=== PATIENT | male | born 2000 | race Caucasian/White ===

== ENCOUNTER 2020-04-11 22:07 | Emergency (ER) | payer OTHER ==
[~2020-04-11] VITALS: Ht 182.9 cm; Wt 93.2 kg
[2020-04-11 23:45] VITALS: BP 132/57
== END 2020-04-12 | disposition home or self-care (01) ==
LOC: M ED 22:07
DX: T43.615A Adverse effect of caffeine, initial encounter (principal); G25.0 Essential tremor; R10.9 Unspecified abdominal pain

== ENCOUNTER 2021-03-09 01:59 | Emergency (ER) | payer OTHER ==
[~2021-03-09] VITALS: Ht 182.9 cm; Wt 97.6 kg
[2021-03-09 01:59] VITALS: BP 141/80
--- NOTE | 2021-03-09 19:14 | ECGEPIP ---
[facility] - ED Test Date: 2021-03-09 Pat Name: VERONICA HERNANDEZ Department: Room: - Gender: Male Poultryman: [facility] : 2000 Requested By: LEONCIO Rios Order Number: [id number] Reading MD: Guerda Crowe Measurements Intervals [place] Rate: 88 P: 61 GA: 166 QRS: 39 QRSD: 84 T: 36 QT: 328 QTc: 396 Interpretive Statements Sinus rhythm with marked sinus arrhythmia Nonspecific ST abnormality No prior ECG for comparison Electronically Signed on 03-09-2021 19:14:28 EDT by Guerda Crowe
== END 2021-03-09 03:19 | disposition left against medical advice (07) ==
LOC: M ED 01:59
DX: Z53.29 Procedure and treatment not carried out because of patient's decision for other reasons (principal)

== ENCOUNTER 2021-05-28 18:12 | Emergency (ER) | payer OTHER ==
[~2021-05-28] VITALS: Ht 182.9 cm; Wt 93.2 kg
[2021-05-28 18:14] VITALS: BP 126/60
--- OUTSIDE RECORDS SUMMARY | 2021-05-28 18:24 | CCD ---
Author Author [facility] Organization [facility] Address Unknown Phone Unavailable Care Team Providers Care Sound Installation Worker Name Role Phone ARMIDA JAIN Unavailable Unavailable Re-disclosure Warning The records that you are about to access may contain information from federally-assisted alcohol or drug abuse programs. If such information is present, then the following federally mandated warning applies: This information has been disclosed to you from records protected by federal confidentiality rules (42 CFR part 2). The federal rules prohibit you from making any further disclosure of this information unless further disclosure is expressly permitted by the written consent of the person to whom it pertains or as otherwise permitted by 42 CFR part 2. A general authorization for the release of medical or other information is NOT sufficient for this purpose. The Federal rules restrict any use of the information to criminally investigate or prosecute any alcohol or drug abuse patient.The records that you are about to access may contain highly sensitive health information, the redisclosure of which is protected by Article 27-F of the [facility] Public Health law. If you continue you may have access to information: Regarding HIV / AIDS; Provided by facilities licensed or operated by the [facility] Office of Mental Health; or Provided by the [facility] Office for People With Developmental Disabilities. If such information is present, then the following [facility] mandated warning applies: This information has been disclosed to you from confidential records which are protected by state law. State law prohibits you from making any further disclosure of this information without the specific written consent of the person to whom it pertains, or as otherwise permitted by law. Any unauthorized further disclosure in violation of state law may result in a fine or mcc sentence or both. A general authorization for the release of medical or other information is NOT sufficient authorization for further disc losure. Encounters Encounter Providers Location Date Indications Data Source(s ) Outpatient Attender: ARMIDA SUNSHINECHLOEonsultant: ARMIDA JAIN 05/23/2021 11:30:00 AM EDT [facility] Immunizations Vaccine Date Status Description Data Source(s) COVID-19 VACCINE Pfizer 02/04/2021 12:00:00 AM EDT completed [facility] Vaccine Series Complete: NOThis Data was Submitted to [facility] Via [employer]. INFLUENZA VIRUS VACCINE QUADRIVALENT 2019- (6 MOS AN D UP) 08/11/2020 12:00:00 AM EST completed [facility] Medications No Information Insurance Providers Payer name Policy type / Coverage type Policy ID Covered green party ID Covered green party's relationship to soares Policy Soares Plan Information [facility] HUMANA - O/P [id number] 18 [id number] [facility] ACTIVE DUTY [id number] SP [id number] [facility] [id number] S [id number] Problems, Conditions, and Diagnoses No Information Surgeries/Procedures No Information Results ID Date Data Source [id number] 05/02/2021 12:00:00 AM EDT [facility] Name Value Range Interpretation Code Description Data Betty rce(s) Supporting Document(s) SARS-COV 2 PCR NEGATIVE [facility] This lab was ordered by [facility] and reported by [employer]. ID Date Data Source [id number] 05/02/2021 12:00:00 AM EDT [facility] Name Value Range Interpretation Code Description Data Betty rce(s) Supporting Document(s) SARS-CoV-2 (COVID-19) RNA [Presence] in Respiratory specimen by ANKIT with probe detection Not detected [facility] This lab was ordered by [employer] and r eported by [employer] ID Date Data Source [id number] 04/25/2021 12:00:00 AM EDT [facility] Name Value Range Interpretation Code Description Data Betty rce(s) Supporting Document(s) SARS-CoV-2 (COVID-19) RNA [Presence] in Respiratory specimen by ANKIT with probe detection Not detected [facility] This lab was ordered by [employer] and r eported by [employer]. ID Date Data Source [id number] 04/25/2021 12:00:00 AM EDT [facility] Name Value Range Interpretation Code Description Data Betty rce(s) Supporting Document(s) SARS-COV 2 PCR NEGATIVE [facility] This lab was ordered by [facility] and reported by [employer]. ID Date Data Source [id number] 04/23/2021 12:00:00 AM EDT [facility] Name Value Range Interpretation Code Description Data Betty rce(s) Supporting Document(s) SARS-CoV-2 (COVID-19) RNA [Presence] in Respiratory specimen by ANKIT with probe detection Not detected [facility] This lab was ordered by [employer] and r eported by [employer]. ID Date Data Source [id number] 04/23/2021 12:00:00 AM EDT [facility] Name Value Range Interpretation Code Description Data Betty rce(s) Supporting Document(s) SARS-COV 2 PCR NEGATIVE [facility] This lab was ordered by [facility] and reported by [employer]. ID Date Data Source [id number] 03/27/2021 12:00:00 AM EDT [facility] Name Value Range Interpretation Code Description Data Betty rce(s) Supporting Document(s) SARS-CoV-2 (COVID-19) RNA [Presence] in Respiratory specimen by ANKIT with probe detection Not detected [facility] This lab was ordered by [employer] and r eported by [employer]. ID Date Data Source [id number] 03/27/2021 12:00:00 AM EDT [facility] Name Value Range Interpretation Code Description Data Betty rce(s) Supporting Document(s) SARS-COV 2 PCR NEGATIVE [facility] This lab was ordered by [facility] and reported by [employer]. ID Date Data Source [id number] 03/22/2021 12:00:00 AM EDT [facility] Name Value Range Interpretation Code Description Data Betty rce(s) Supporting Document(s) SARS-CoV-2 (COVID-19) RNA [Presence] in Respiratory specimen by ANKIT with probe detection Not detected [facility] This lab was ordered by [employer] and r eported by [employer]. ID Date Data Source [id number] 03/22/2021 12:00:00 AM EDT [facility] Name Value Range Interpretation Code Description Data Betty rce(s) Supporting Document(s) SARS-COV 2 PCR NEGATIVE [facility] This lab was ordered by [facility] and reported by [employer]. ID Date Data Source [id number] 03/13/2021 01:00:00 AM EDT [facility] Name Value Range Interpretation Code Description Data Betty rce(s) Supporting Document(s) SARS-COV 2 PCR NEGATIVE [facility] This lab was ordered by [facility] and reported by [employer]. ID Date Data Source [id number] 03/13/2021 12:00:00 AM EDT [facility] Name Value Range Interpretation Code Description Data Betty rce(s) Supporting Document(s) SARS-CoV-2 (COVID-19) RNA [Presence] in Respiratory specimen by ANKIT with probe detection Not detected [facility] This lab was ordered by [employer] and r eported by [employer]. ID Date Data Source [id number] 03/07/2021 08:43:00 AM EDT [facility] Name Value Range Interpretation Code Description Data Betty rce(s) Supporting Document(s) SARS-COV 2 PCR NEGATIVE [facility] This lab was ordered by [facility] and reported by [employer]. ID Date Data Source [id number] 03/07/2021 12:00:00 AM EDT [facility] Name Value Range Interpretation Code Description Data Betty rce(s) Supporting Document(s) SARS-CoV-2 (COVID-19) RNA [Presence] in Respiratory specimen by ANKIT with probe detection Not detected [facility] This lab was ordered by [employer] and r eported by [employer]. ID Date Data Source [id number] 03/01/2021 12:00:00 AM EDT [facility] Name Value Range Interpretation Code Description Data Betty rce(s) Supporting Document(s) SARS-COV 2 PCR NEGATIVE [facility] This lab was ordered by [facility] and reported by [employer]. ID Date Data Source [id number] 03/01/2021 12:00:00 AM EDT [facility] Name Value Range Interpretation Code Description Data Betty rce(s) Supporting Document(s) SARS-CoV-2 (COVID-19) RNA [Presence] in Respiratory specimen by ANKIT with probe detection Not detected [facility] This lab was ordered by [employer] and r eported by [facility]. ID Date Data Source [id number] 02/23/2021 12:00:00 AM EDT [facility] Name Value Range Interpretation Code Description Data Betty rce(s) Supporting Document(s) SARS coronavirus 2 RNA Not Detected [facility] This lab was ordered by [employer] and rep orted by [facility]. Procedure Social History No Information
[2021-05-28] MEDS ORDERED: DERMABOND TOPICAL SKIN ADHESIVE TOP ONE (20:15)
[2021-05-28] MEDS ORDERED: ONDANSETRON 4 MG ORAL DISINTEGRATING TAB PO ONE (20:15)
--- OUTSIDE RECORDS SUMMARY | 2021-05-28 20:30 | CCD ---
Author Author [facility] Organization [facility] Address Unknown Phone Unavailable Care Team Providers Care Child Welfare Consultant Name Role Phone ARMIDA JAIN Unavailable Unavailable [...] is protected by Article 27-F of the [facility] Public Health law. If you continue you may have access to information: Regarding HIV / AIDS; Provided by facilities licensed or operated by the [facility] Office of Mental Health; or Provided by the [facility] Office for People With Developmental Disabilities. If such information is present, then the following [facility] mandated warning applies: This information has been [...] law may result in a fine or nursing home sentence or both. A general authorization for the release of medical or other information is NOT sufficient authorization for further disc losure. Encounters Encounter Providers Location Date Indications Data Source(s ) Outpatient Attender: ARMIDA SUNSHINECHLOEonsultant: ARMIDA JAIN 05/23/2021 11:30:00 AM EDT [facility] Immunizations Vaccine Date Status Description Data Source(s) COVID-19 VACCINE Pfizer 02/04/2021 12:00:00 AM EDT completed [facility] Vaccine Series Complete: NOThis Data was Submitted to [facility] Via [employer]. INFLUENZA VIRUS VACCINE QUADRIVALENT 2019- (6 MOS AN D UP) 08/11/2020 12:00:00 AM EST completed [facility] Medications No Information Insurance Providers Payer name Policy type / Coverage type Policy ID Covered republican ID Covered republican's relationship to soares Policy Soares Plan Information [facility] HUMANA - O/P [id number] 18 [id number] [facility] ACTIVE DUTY [id number] SP [id number] [facility] [id number] S [id number] Problems, Conditions, and Diagnoses No Information Surgeries/Procedures No Information Results ID Date Data Source [id number] 05/02/2021 12:00:00 AM EDT [facility] Name Value Range Interpretation Code Description Data Betty rce(s) Supporting Document(s) SARS-COV 2 PCR NEGATIVE [facility] This lab was ordered by [facility] [employer] [facility] and reported by [employer]. ID Date Data Source [id number] 05/02/2021 12:00:00 AM EDT [facility] Name Value Range Interpretation Code Description Data Betty rce(s) Supporting Document(s) SARS-CoV-2 (COVID-19) RNA [Presence] in Respiratory specimen by ANKIT with probe detection Not detected [facility] This lab was ordered by [employer] and r eported by [employer]. ID Date Data Source [id number] 04/25/2021 12:00:00 AM EDT [facility] Name Value Range Interpretation Code Description Data Betty rce(s) Supporting Document(s) SARS-CoV-2 (COVID-19) RNA [Presence] in Respiratory specimen by ANKIT with probe detection Not detected [facility] This lab was ordered by [employer] and r eported by [employer]. ID Date Data Source [id number] 04/25/2021 12:00:00 AM EDT [facility] Name Value Range Interpretation Code Description Data Betty rce(s) Supporting Document(s) SARS-COV 2 PCR NEGATIVE [facility] This lab was ordered by [facility] and reported by [employer]. ID Date Data Source [id number] 04/23/2021 12:00:00 AM EDT [facility] Name Value Range Interpretation Code Description Data Betty rce(s) Supporting Document(s) SARS-CoV-2 (COVID-19) RNA [Presence] in Respiratory specimen by ANKIT with probe detection Not detected [facility] This lab was ordered by [employer] and r eported by [employer]. ID Date Data Source [id number] 04/23/2021 12:00:00 AM EDT [facility] Name Value Range Interpretation Code Description Data Betty rce(s) Supporting Document(s) SARS-COV 2 PCR NEGATIVE [facility] This lab was ordered by [facility] and reported by [employer]. ID Date Data Source [id number] 03/27/2021 12:00:00 AM EDT [facility] Name Value Range Interpretation Code Description Data Betty rce(s) Supporting Document(s) SARS-CoV-2 (COVID-19) RNA [Presence] in Respiratory specimen by ANKIT with probe detection Not detected [facility] This lab was ordered by [employer] and r eported by [employer]. ID Date Data Source [id number] 03/27/2021 12:00:00 AM EDT [facility] Name Value Range Interpretation Code Description Data Betty rce(s) Supporting Document(s) SARS-COV 2 PCR NEGATIVE [facility] This lab was ordered by [facility] and reported by [employer]. ID Date Data Source [id number] 03/22/2021 12:00:00 AM EDT [facility] Name Value Range Interpretation Code Description Data Betty rce(s) Supporting Document(s) SARS-CoV-2 (COVID-19) RNA [Presence] in Respiratory specimen by ANKIT with probe detection Not detected [facility] This lab was ordered by [employer] and r eported by [employer]. ID Date Data Source [id number] 03/22/2021 12:00:00 AM EDT [facility] Name Value Range Interpretation Code Description Data Betty rce(s) Supporting Document(s) SARS-COV 2 PCR NEGATIVE [facility] This lab was ordered by [facility] and reported by [employer]. ID Date Data Source [id number] 03/13/2021 01:00:00 AM EDT [facility] Name Value Range Interpretation Code Description Data Betty rce(s) Supporting Document(s) SARS-COV 2 PCR NEGATIVE [facility] This lab was ordered by [facility] and reported by [employer]. ID Date Data Source [id number] 03/13/2021 12:00:00 AM EDT [facility] Name Value Range Interpretation Code Description Data Betty rce(s) Supporting Document(s) SARS-CoV-2 (COVID-19) RNA [Presence] in Respiratory specimen by ANKIT with probe detection Not detected [facility] This lab was ordered by [employer] and r eported by [employer]. ID Date Data Source [id number] 03/07/2021 08:43:00 AM EDT [facility] Name Value Range Interpretation Code Description Data Betty rce(s) Supporting Document(s) SARS-COV 2 PCR NEGATIVE [facility] This lab was ordered by [facility] and reported by [employer]. ID Date Data Source [id number] 03/07/2021 12:00:00 AM EDT [facility] Name Value Range Interpretation Code Description Data Betty rce(s) Supporting Document(s) SARS-CoV-2 (COVID-19) RNA [Presence] in Respiratory specimen by ANKIT with probe detection Not detected [facility] This lab was ordered by [employer] and r eported by [employer]. ID Date Data Source [id number] 03/01/2021 12:00:00 AM EDT [facility] Name Value Range Interpretation Code Description Data Betty rce(s) Supporting Document(s) SARS-COV 2 PCR NEGATIVE [facility] This lab was ordered by [facility] and reported by [employer]. ID Date Data Source [id number] 03/01/2021 12:00:00 AM EDT [facility] Name Value Range Interpretation Code Description Data Betty rce(s) Supporting Document(s) SARS-CoV-2 (COVID-19) RNA [Presence] in Respiratory specimen by ANKIT with probe detection Not detected [facility] This lab was ordered by [email or web address] and r eported by [facility]. ID Date Data Source [id number] 02/23/2021 12:00:00 AM EDT [facility] Name Value Range Interpretation Code Description Data Betty rce(s) Supporting Document(s) SARS coronavirus 2 RNA Not Detected [facility] This lab was ordered by [employer] and rep orted by [facility]. Procedure Social History No Information
== END 2021-05-28 21:11 | disposition home or self-care (01) ==
LOC: M ED 18:12
DX: S61.412A Laceration without foreign body of left hand, initial encounter (principal); W26.0XXA Contact with knife, initial encounter; Y92.89 Other specified places as the place of occurrence of the external cause; Y99.0 Civilian activity done for income or pay
CPT/HCPCS: 12001; 99282; Q0162

== ENCOUNTER 2021-09-20 17:16 | Emergency (ER) | payer OTHER ==
[~2021-09-20] VITALS: Ht 182.9 cm; Wt 100.0 kg
[2021-09-20 19:19] LABS: BASO # 0.1 10^3/uL (0.0-0.2); BASO % 0.7 % (0.0-1.0); EOS # 0.4 10^3/uL (0.0-0.5); EOS % 4.7 % (0.0-3.0); HEMATOCRIT 47.2 % (42.0-52.0); HEMOGLOBIN 15.9 g/dl (13.5-17.5); LYMPH % 25.4 % (24.0-44.0); MEAN CORPUSCULAR HGB CONC 33.7 g/dl (32.0-36.5); MONO % 13.4 % (2.0-8.0); NEUTROPHILS # 4.3 10^3/uL (1.5-8.5); NEUTROPHILS % 55.7 % (36.0-66.0); PLATELET COUNT, AUTOMATED 348 10^3/uL (150-450); RED BLOOD COUNT 5.13 10^6/uL (4.30-6.10); WHITE BLOOD COUNT 7.7 10^3/uL (4.0-10.0)
[2021-09-20 19:39] LABS: ERYTHROCYTE SEDIMENTATION RATE 2 mm/hr (0-15)
[2021-09-20 19:58] LABS: BLOOD UREA NITROGEN 20 MG/DL (7-18); CALCIUM LEVEL 9.5 MG/DL (8.5-10.1); CARBON DIOXIDE LEVEL 29 MEQ/L (21-32); CHLORIDE LEVEL 104 MEQ/L (98-107); CREATININE FOR GFR 1.04 MG/DL (0.70-1.30); GLOMERULAR FILTRATION RATE > 60.0 (>60); GLUCOSE, FASTING 92 MG/DL (70-100); POTASSIUM SERUM 4.5 MEQ/L (3.5-5.1); SODIUM LEVEL 137 MEQ/L (136-145)
[2021-09-20 20:49] VITALS: BP 137/79
== END 2021-09-20 20:51 | disposition home or self-care (01) ==
LOC: M ED 17:16
DX: R07.89 Other chest pain (principal); R06.02 Shortness of breath

== ENCOUNTER 2022-01-26 13:49 | Emergency (ER) | payer OTHER ==
[~2022-01-26] VITALS: Ht 182.9 cm; Wt 95.5 kg
[2022-01-26 15:47] LABS: RSV AMPLIFICATION NEGATIVE (NEGATIVE)
[2022-01-26 16:38] VITALS: BP 140/94
== END 2022-01-26 16:41 | disposition home or self-care (01) ==
LOC: M ED 13:49
DX: R05.9 Cough, unspecified (principal); R06.7 Sneezing

== ENCOUNTER 2023-04-01 15:44 | Emergency (ER) | payer OTHER ==
[~2023-04-01] VITALS: Ht 182.9 cm; Wt 100.5 kg
[2023-04-01 15:45] VITALS: BP 162/86; TEMP 98.2; O2SAT 97
[2023-04-01] MEDS ORDERED: ACETAMINOPHEN 325 MG TAB PO ONE (19:30)
[2023-04-01 19:56] LABS: GC DNA AMPLIFICATION NEGATIVE (NEGATIVE)
[2023-04-01] MEDS ORDERED: DOXYCYCLINE HYCLATE 100MG TABLET PO ONE (20:25)
[2023-04-01] MEDS ORDERED: DOXY-443 PO (20:26)
== END 2023-04-01 20:38 | disposition home or self-care (01) ==
LOC: M ED 15:44
DX: N34.1 Nonspecific urethritis (principal); A74.9 Chlamydial infection, unspecified; Z79.899 Other long term (current) drug therapy

== ENCOUNTER 2023-04-29 21:37 | Emergency (ER) | payer OTHER ==
[~2023-04-29] VITALS: Ht 182.9 cm; Wt 100.0 kg
[~2023-04-29 21:37] MED LIST: DOXY-443 PO
[2023-04-29 21:45] VITALS: BP 165/95; TEMP 97.9; O2SAT 94
== END 2023-04-29 23:13 | disposition left against medical advice (07) ==
LOC: M ED 21:37
DX: Z53.21 Procedure and treatment not carried out due to patient leaving prior to being seen by health care provider (principal)

== ENCOUNTER 2023-09-08 21:21 | Emergency (ER) | payer OTHER ==
[~2023-09-08] VITALS: Ht 182.9 cm; Wt 101.4 kg
[2023-09-08 22:42] LABS: BASO % 0.3 % (0.0-1.0); EOS # 0.1 10^3/uL (0.0-0.5); EOS % 0.6 % (0.0-3.0); HEMATOCRIT 50.6 % (42.0-52.0); HEMOGLOBIN 17.7 g/dl (13.5-17.5); LYMPH # 1.9 10^3/uL (1.5-5.0); MEAN CORPUSCULAR HEMOGLOBIN 32.5 pg (27.0-33.0); MEAN CORPUSCULAR VOLUME 92.8 fl (80.0-96.0); MONO % 9.5 % (2.0-8.0); NEUTROPHILS # 7.4 10^3/uL (1.5-8.5); NEUTROPHILS % 71.1 % (36.0-66.0); PLATELET COUNT, AUTOMATED 389 10^3/uL (150-450); RED BLOOD COUNT 5.45 10^6/uL (4.30-6.10); WHITE BLOOD COUNT 10.4 10^3/uL (4.0-10.0)
[2023-09-08 22:58] LABS: INR 0.97; PROTHROMBIN TIME 12.6 SECONDS (12.5-14.5)
[2023-09-08 22:59] LABS: PARTIAL THROMBOPLASTIN TIME 33.2 SECONDS (24.8-34.2)
[2023-09-08 23:08] LABS: ETHYL ALCOHOL (ETHANOL) 0.252 % (0.000-0.010)
[2023-09-08 23:10] LABS: ALBUMIN 4.4 G/DL (3.2-5.2); ALKALINE PHOSPHATASE 62 U/L (46-116); ALT/SGPT 55 U/L (7.0-40); AST/SGOT 39 U/L (<34); BILIRUBIN,TOTAL 0.5 MG/DL (0.3-1.2); BLOOD UREA NITROGEN 7 MG/DL (9-23); CALCIUM LEVEL 9.5 MG/DL (8.5-10.1); CARBON DIOXIDE LEVEL 27 MMOL/L (20-31); CHLORIDE LEVEL 104 MMOL/L (98-107); CREATININE FOR GFR 0.88 MG/DL (0.70-1.30); GLOMERULAR FILTRATION RATE > 60.0 (>60); GLUCOSE, FASTING 95 MG/DL (60-100); MAGNESIUM LEVEL 2.2 MG/DL (1.8-2.4); POTASSIUM SERUM 4.2 MMOL/L (3.5-5.1); SODIUM LEVEL 140 MMOL/L (136-145); TOTAL PROTEIN 7.9 G/DL (5.7-8.2)
[2023-09-08 23:29] VITALS: BP 148/80; TEMP 98.8; O2SAT 98
== END 2023-09-08 23:31 | disposition short-term general hospital (02) ==
LOC: M ED 21:21
DX: S06.0X1A Concussion with loss of consciousness of 30 minutes or less, initial encounter (principal); S06.369A Traumatic hemorrhage of cerebrum, unspecified, with loss of consciousness of unspecified duration, initial encounter; V00.311A Fall from snowboard, initial encounter; F10.10 Alcohol abuse, uncomplicated; Y92.89 Other specified places as the place of occurrence of the external cause; Y93.23 Activity, snow (alpine) (downhill) skiing, snowboarding, sledding, tobogganing and snow tubing; Y99.9 Unspecified external cause status

== ENCOUNTER 2023-11-06 10:17 | Emergency (ER) | payer OTHER ==
[~2023-11-06] VITALS: Ht 182.9 cm; Wt 98.9 kg
[2023-11-06 12:07] VITALS: BP 134/75; TEMP 98.1; O2SAT 99
== END 2023-11-06 12:08 | disposition home or self-care (01) ==
LOC: M ED 10:17
DX: S99.921A Unspecified injury of right foot, initial encounter (principal); W19.XXXA Unspecified fall, initial encounter; Y92.84 Military training ground as the place of occurrence of the external cause; Y93.9 Activity, unspecified; Y99.1 Military activity

== ENCOUNTER 2025-03-01 21:20 | Observation (INO) | payer OTHER ==
[~2025-03-01] VITALS: Ht 182.9 cm; Wt 101.2 kg
[~2025-03-01 21:20] MED LIST changes: +DOXY-441 PO; -DOXY-443 PO
[2025-03-01 22:37] LABS: BASO # 0.0 10^3/uL (0.0-0.2); BASO % 0.3 % (0.0-1.0); EOS # 0.1 10^3/uL (0.0-0.5); EOS % 0.7 % (0.0-3.0); LYMPH # 1.9 10^3/uL (1.5-5.0); LYMPH % 17.8 % (24.0-44.0); MONO # 1.1 10^3/uL (0.0-0.8); MONO % 10.8 % (2.0-8.0); NEUTROPHILS # 7.4 10^3/uL (1.5-8.5); NEUTROPHILS % 70.1 % (36.0-66.0); PLATELET COUNT, AUTOMATED 355 10^3/uL (150-450)
[2025-03-01 22:52] LABS: ALT/SGPT 103 U/L (7.0-40); AST/SGOT 78 U/L (<34); CALCIUM LEVEL 9.4 MG/DL (8.5-10.1); CARBON DIOXIDE LEVEL 27 MMOL/L (20-31); CHLORIDE LEVEL 101 MMOL/L (98-107); CREATININE FOR GFR 0.98 MG/DL (0.70-1.30); GLOMERULAR FILTRATION RATE > 90.0 (>60); POTASSIUM SERUM 3.8 MMOL/L (3.5-5.1); SODIUM LEVEL 139 MMOL/L (136-145)
[2025-03-02 06:58] LABS: D-DIMER QUANT < 0.27 ug/mL (<0.5); INR 0.96
[2025-03-02 07:14] LABS: CK-MB VALUE MASS 2.3 NG/ML (<3.6); MAGNESIUM LEVEL 1.7 MG/DL (1.8-2.4)
[2025-03-02 07:15] LABS: CPK CREATINE PHOSPHOKINASE 165 U/L (46-171); MB/CK RELATIVE INDEX 1.39 (< OR =4)
[2025-03-02 08:11] LABS: CK-MB VALUE MASS 2.9 NG/ML (<3.6)
[2025-03-02 08:12] LABS: CPK CREATINE PHOSPHOKINASE 169 U/L (46-171); MB/CK RELATIVE INDEX 1.71 (< OR =4)
[2025-03-02] MEDS: MAGNESIUM OXIDE 400 MG TAB PO ONE (08:52)
[2025-03-02] MEDS ORDERED: HOME MED LIST COMPLETE! XX SCH (09:55)
[2025-03-02] MEDS: THIAMINE 100 MG TAB PO SCH (12:32)
[2025-03-02] MEDS: FOLIC ACID 1 MG TAB PO SCH (12:32)
[2025-03-02] MEDS: MULTIVITAMINS/MINERALS THERAP 1 TAB PO SCH (12:32)
[2025-03-02] MEDS: ENOXAPARIN 40 MG/0.4 ML SYRINGE (J1650 PER 10MG) SC SCH (12:32)
[2025-03-02 13:09] VITALS: BP 148/93
[2025-03-02 13:10] VITALS: BP 148/93; TEMP 98.1; O2SAT 98
[2025-03-02] MEDS: MAG SULF 1GM/100ML (MAG RUN) 1 GM in IV 1 EA IV ONE (13:56)
[2025-03-02 14:19] VITALS: BP 148/93
[2025-03-02 19:41] VITALS: BP 132/72; TEMP 97.9; O2SAT 98
[2025-03-02 20:00] VITALS: BP 132/72
[2025-03-03 04:39] VITALS: BP 110/59; TEMP 99.3; O2SAT 97
[2025-03-03 07:42] LABS: CALCIUM LEVEL 9.3 MG/DL (8.5-10.1); CARBON DIOXIDE LEVEL 29.0 MMOL/L (20-31); CHLORIDE LEVEL 105.0 MMOL/L (98-107); CHOLESTEROL LEVEL 209.0 MG/DL (<200); CHOLESTEROL RISK RATIO 2.29 (<5); CREATININE FOR GFR 1.27 MG/DL (0.70-1.30); GLOMERULAR FILTRATION RATE 80.9 (>60); LDL CHOLESTEROL 94.1 MG/DL (<100); MAGNESIUM LEVEL 2.1 MG/DL (1.8-2.4); NON-HDL-C 118.1 MG/DL; POTASSIUM SERUM 4.5 MMOL/L (3.5-5.1); SODIUM LEVEL 141.0 MMOL/L (136-145); TRIGLYCERIDES LEVEL 120.0 MG/DL (<150)
[2025-03-03 12:00] VITALS: BP 129/86; TEMP 99.6; O2SAT 98
== END 2025-03-03 12:50 | disposition home or self-care (01) ==
LOC: M ED 21:20 → M ED INP 21:22 → M MS4PR 03-02 13:05
PROVIDERS: ADMIT Student in an Organized Health Care Education/Training Program; ATTEND Student in an Organized Health Care Education/Training Program
DX: R55 Syncope and collapse (principal); Z87.820 Personal history of traumatic brain injury; Z87.828 Personal history of other (healed) physical injury and trauma; R74.01 Elevation of levels of liver transaminase levels; K76.0 Fatty (change of) liver, not elsewhere classified; E83.42 Hypomagnesemia; F10.10 Alcohol abuse, uncomplicated; Z90.89 Acquired absence of other organs; F17.290 Nicotine dependence, other tobacco product, uncomplicated
CPT/HCPCS: 36415; 70450; 76705; 80048; 80053; 80061; 82550; 82553; 83735; 84484; 85025; 85379; 85610; 85730; 93005; 93306; 96374; 99285; J3475

== ENCOUNTER 2025-05-01 13:14 | Emergency (ER) | payer OTHER ==
[~2025-05-01] VITALS: Ht 180.3 cm; Wt 97.6 kg
[2025-05-01 14:00] LABS: BASO # 0.0 10^3/uL (0.0-0.2); BASO % 0.2 % (0.0-1.0); EOS # 0.1 10^3/uL (0.0-0.5); EOS % 0.4 % (0.0-3.0); LYMPH # 1.5 10^3/uL (1.5-5.0); LYMPH % 10.1 % (24.0-44.0); MONO # 1.7 10^3/uL (0.0-0.8); MONO % 11.3 % (2.0-8.0); NEUTROPHILS # 11.8 10^3/uL (1.5-8.5); NEUTROPHILS % 77.7 % (36.0-66.0); PLATELET COUNT, AUTOMATED 309 10^3/uL (150-450)
[2025-05-01 14:26] LABS: CALCIUM LEVEL 8.9 MG/DL (8.5-10.1); CARBON DIOXIDE LEVEL 31 MMOL/L (20-31); CHLORIDE LEVEL 104 MMOL/L (98-107); CREATININE FOR GFR 1.05 MG/DL (0.70-1.30); GLOMERULAR FILTRATION RATE > 90.0 (>60); POTASSIUM SERUM 4.3 MMOL/L (3.5-5.1); SODIUM LEVEL 146 MMOL/L (136-145)
[2025-05-01 14:35] LABS: AMPHETAMINES LEVEL URINE NEGATIVE (NEGATIVE)
[2025-05-01 14:36] LABS: BARBITURATES URINE NEGATIVE (NEGATIVE); BENZODIAZEPINES URINE NEGATIVE (NEGATIVE); CANNABINOIDS URINE NEGATIVE (NEGATIVE); METHADONE URINE NEGATIVE (NEGATIVE); OPIATES URINE NEGATIVE (NEGATIVE); PHENCYCLIDINE URINE NEGATIVE (NEGATIVE)
[2025-05-01 14:38] LABS: COCAINE METABOLITE URINE POSITIVE (NEGATIVE)
[2025-05-01 15:54] VITALS: BP 127/62; TEMP 99.1; O2SAT 97
== END 2025-05-01 16:03 | disposition home or self-care (01) ==
LOC: M ED 13:14
DX: S06.0X0A Concussion without loss of consciousness, initial encounter (principal); S60.221A Contusion of right hand, initial encounter; R55 Syncope and collapse; Y92.328 Other athletic field as the place of occurrence of the external cause; Y93.9 Activity, unspecified; Y99.9 Unspecified external cause status; W51.XXXA Accidental striking against or bumped into by another person, initial encounter